=== PATIENT | male | born 1940 | race Caucasian/White ===

== ENCOUNTER → 2017-05-05 | Outpatient (CLI) | payer OTHER, MEDICAID ==
[~2017-05-05] MED LIST: AMLO5TAB2 PO; ASPI-638 PO; FINA5TAB4 PO; HYDR-3144 PO; LOVA40TA65 PO; PRED5DRO2 EACHEYE; SIMV20TA3 PO; SULF1TAB24 PO; TAMS-11 PO; TRAM50TA2 PO
== END | disposition home or self-care (01) ==
LOC: CVU 13:24
PROVIDERS: ATTEND Nurse Practitioner Family
DX: T24.301A Burn of third degree of unspecified site of right lower limb, except ankle and foot, initial encounter (principal); R21 Rash and other nonspecific skin eruption; I10 Essential (primary) hypertension; Z86.73 Personal history of transient ischemic attack (TIA), and cerebral infarction without residual deficits; Z86.79 Personal history of other diseases of the circulatory system
CPT/HCPCS: 93922

== ENCOUNTER 2018-07-13 20:15 | Inpatient (IN) | payer OTHER ==
[~2018-07-13] VITALS: Ht 165.1 cm; Wt 47.8 kg
[~2018-07-13 20:15] MED LIST changes: +ACET325T14 PO; -AMLO5TAB2 PO; +AMLO5TAB7 PO; +APIX5TAB PO; +CITA10TA8 PO; -HYDR-3144 PO; +HYDR-3245 PO; +LOVA-41 PO; -LOVA40TA65 PO; +ONDA4TAB13 PO; +POLY17PO5 PO; +TRAZ-136 PO
[2018-07-13] MEDS ORDERED: METOCLOPRAMIDE 5 MG/ML, 2ML ONE (20:47)
[2018-07-13] MEDS ORDERED: SODIUM CHLORIDE FLUSH 10ML SYR IVF ONE (21:00)
[2018-07-13] MEDS ORDERED: METOCLOPRAMIDE 5 MG/ML, 2ML IVPush ONE (21:00)
[2018-07-13 21:23] LABS: BASOPHILS # (AUTO) 0.02 x10^3/uL (0-0.1); BASOPHILS % (AUTO) 0 % (0-1); EOSINOPHILS # (AUTO) 0.01 x10^3/uL (0-0.4); EOSINOPHILS % (AUTO) 0 % (1-7); LYMPHOCYTES # (AUTO) 0.78 x10^3/uL (1-3.4); LYMPHOCYTES % (AUTO) 9 % (22-44); MD NO; MEAN CORPUSCULAR HEMOGLOBIN 30.4 pg (27.5-34.5); MEAN CORPUSCULAR HGB CONC 33.2 g/dL (33.2-36.2); MEAN CORPUSCULAR VOLUME 91.7 fL (81-97); MONOCYTES # (AUTO) 0.52 x10^3/uL (0.2-0.8); MONOCYTES % (AUTO) 6 % (2-9); NEUTROPHILS # (AUTO) 7.64 x10^3/uL (1.8-6.8); NEUTROPHILS % (AUTO) 85 % (42-75); PLATELET COUNT 618 x10^3/uL (130-400); RED BLOOD COUNT 4.65 x10^6/uL (4.38-5.82); RED CELL DISTRIBUTION WIDTH 14.8 % (9.4-14.8)
[2018-07-13 21:28] LABS: INTERNATIONAL NORMALIZED RATIO 0.97 (0.93-1.1)
[2018-07-13 21:29] LABS: ALANINE AMINOTRANSFERASE 33 U/L (12-78); ALBUMIN 3.3 g/dL (3.4-5.0); ANION GAP 7 mmol/L (5-15); CALCIUM 9.1 mg/dL (8.5-10.1); CHLORIDE 108 mmol/L (98-107); CREATININE 0.76 mg/dL (0.7-1.3)
[2018-07-13 21:31] LABS: ALKALINE PHOSPHATASE 125 U/L (45-117); BILIRUBIN,TOTAL 0.7 mg/dL (0.2-1.0); TOTAL PROTEIN 7.1 g/dL (6.4-8.2)
[2018-07-13 21:31] LABS: CULTURE INDICATED? YES; MICROSCOPIC INDICATED
[2018-07-13 22:23] LABS: CLOSTRIDIUM DIFFICILE ANTIGEN NEGATIVE; CLOSTRIDIUM DIFFICILE TOXIN NEGATIVE (Negative)
[2018-07-13] MEDS ORDERED: CEFTRIAXONE 1,000 MG in SODIUM CHLORIDE 0.9% 50 ML IV ONE (22:30)
[2018-07-13] MEDS ORDERED: ACETAMINOPHEN 325 MG TABLET PO PRN (23:00)
[2018-07-13] MEDS ORDERED: ONDANSETRON 2MG/ML, 2ML IVPush PRN (23:00)
[2018-07-13] MEDS ORDERED: POLYETHYLENE GLYCOL 17 GM PACKET PO PRN (23:00)
[2018-07-13] MEDS ORDERED: OXYcodone IR 5MG TABLET PO PRN (23:00)
[2018-07-13] MEDS ORDERED: TRAZODONE 50MG TABLET PO PRN (23:00)
[2018-07-13] MEDS ORDERED: DOCUSATE 100 MG CAPSULE PO PRN (23:00)
[2018-07-13] MEDS ORDERED: CEFTRIAXONE PMX 1GM/50ML 50 ML ONE (23:11)
[2018-07-13] MEDS ORDERED: NS + 20MEQ KCL 1,000 ML IV ONE (23:12)
[2018-07-13] MEDS: CEFTRIAXONE PMX 1GM/50ML 50 ML IV SCH (23:14)
[2018-07-14] MEDS: NS + 20MEQ KCL 1,000 ML IV SCH ×2 (00:08→12:19)
[2018-07-14 00:10] VITALS: BP 151/76
[2018-07-14 01:21] VITALS: BP 157/76
[2018-07-14] MEDS: FAMOTIDINE 20 MG/2 ML IVPush SCH ×4 (03:04→21:13)
[2018-07-14] MEDS ORDERED: OMNIPAQUE 350 MG/ML, 100ML BOTTLE ONE (05:36)
[2018-07-14 07:33] VITALS: BP 132/65
[2018-07-14 08:17] LABS: BASOPHILS # (AUTO) 0.01 x10^3/uL (0-0.1); BASOPHILS % (AUTO) 0 % (0-1); EOSINOPHILS # (AUTO) 0.01 x10^3/uL (0-0.4); EOSINOPHILS % (AUTO) 0 % (1-7); LYMPHOCYTES % (AUTO) 3 % (22-44); MD NO; MEAN CORPUSCULAR HEMOGLOBIN 30.2 pg (27.5-34.5); MEAN CORPUSCULAR HGB CONC 33.1 g/dL (33.2-36.2); MEAN CORPUSCULAR VOLUME 91.2 fL (81-97); MEAN PLATELET VOLUME 6.7 fL (7.4-10.4); MONOCYTES # (AUTO) 0.44 x10^3/uL (0.2-0.8); MONOCYTES % (AUTO) 5 % (2-9); NEUTROPHILS # (AUTO) 8.14 x10^3/uL (1.8-6.8); NEUTROPHILS % (AUTO) 92 % (42-75); PLATELET COUNT 594 x10^3/uL (130-400); RED BLOOD COUNT 4.59 x10^6/uL (4.38-5.82); RED CELL DISTRIBUTION WIDTH 14.6 % (9.4-14.8)
[2018-07-14 08:26] LABS: ALBUMIN 3.1 g/dL (3.4-5.0); ANION GAP 10 mmol/L (5-15); CHLORIDE 109 mmol/L (98-107)
[2018-07-14 08:29] LABS: ALANINE AMINOTRANSFERASE 29 U/L (12-78); ALKALINE PHOSPHATASE 114 U/L (45-117); BILIRUBIN,TOTAL 0.7 mg/dL (0.2-1.0); CREATININE 0.66 mg/dL (0.7-1.3); TOTAL PROTEIN 6.6 g/dL (6.4-8.2)
[2018-07-14] MEDS ORDERED: APIXABAN 5 MG TABLET PO SCH (09:00)
[2018-07-14] MEDS ORDERED: CITALOPRAM 10 MG TABLET PO SCH (09:00)
[2018-07-14] MEDS ORDERED: TAMSULOSIN 0.4 MG CAP.ER.24H PO SCH (09:00)
[2018-07-14] MEDS ORDERED: SENNA/DOCUSATE TABLET PO SCH (09:00)
[2018-07-14] MEDS: POLYETHYLENE GLYCOL 17 GM PACKET PO SCH (10:55)
[2018-07-14] MEDS ORDERED: HEPARIN 25,000 UNITS/500ML PMX 500 ML IV PRN (13:30)
[2018-07-14 14:00] VITALS: BP 133/72
[2018-07-14] MEDS: D5%-0.45NACL+KCL 20MEQ 1,000 ML IV SCH (14:26)
[2018-07-14 18:33] VITALS: BP 153/77
[2018-07-14] MEDS: CEFTRIAXONE PMX 1GM/50ML 50 ML IV SCH (23:16)
[2018-07-15 00:41] VITALS: BP 131/55
[2018-07-15] MEDS: D5%-0.45NACL+KCL 20MEQ 1,000 ML IV SCH ×3 (01:11→23:39)
[2018-07-15] MEDS: morphine SULFATE 10 MG/ML, 1ML IVPush PRN (05:10)
[2018-07-15 05:18] LABS: BASOPHILS # (AUTO) 0.03 x10^3/uL (0-0.1); BASOPHILS % (AUTO) 0 % (0-1); EOSINOPHILS # (AUTO) 0.01 x10^3/uL (0-0.4); EOSINOPHILS % (AUTO) 0 % (1-7); LYMPHOCYTES # (AUTO) 0.65 x10^3/uL (1-3.4); LYMPHOCYTES % (AUTO) 7 % (22-44); MD NO; MEAN CORPUSCULAR HEMOGLOBIN 30.5 pg (27.5-34.5); MEAN CORPUSCULAR HGB CONC 33.3 g/dL (33.2-36.2); MEAN CORPUSCULAR VOLUME 91.6 fL (81-97); MEAN PLATELET VOLUME 6.8 fL (7.4-10.4); MONOCYTES # (AUTO) 0.52 x10^3/uL (0.2-0.8); MONOCYTES % (AUTO) 6 % (2-9); NEUTROPHILS # (AUTO) 8.34 x10^3/uL (1.8-6.8); NEUTROPHILS % (AUTO) 87 % (42-75); PLATELET COUNT 502 x10^3/uL (130-400); RED BLOOD COUNT 4.29 x10^6/uL (4.38-5.82); RED CELL DISTRIBUTION WIDTH 14.6 % (9.4-14.8)
[2018-07-15 05:31] LABS: ALBUMIN 2.8 g/dL (3.4-5.0); ANION GAP 10 mmol/L (5-15); CHLORIDE 110 mmol/L (98-107); CREATININE 0.58 mg/dL (0.7-1.3)
[2018-07-15 07:55] VITALS: BP 145/79
[2018-07-15] MEDS: POLYETHYLENE GLYCOL 17 GM PACKET PO SCH (08:36)
[2018-07-15] MEDS: FAMOTIDINE 20 MG/2 ML IVPush SCH ×2 (08:36→21:08)
[2018-07-15] MEDS: AMPICILLIN/SULBACTAM 3 GM in SODIUM CHLORIDE 0.9% 100 ML IV SCH ×3 (09:14→19:44)
[2018-07-15 13:43] VITALS: BP 129/76
[2018-07-15] MEDS: HEPARIN 25,000 UNITS/500ML PMX 500 ML IV PRN (15:37)
[2018-07-15 19:00] VITALS: BP 120/69
[2018-07-16 01:26] VITALS: BP 121/65
[2018-07-16] MEDS: AMPICILLIN/SULBACTAM 3 GM in SODIUM CHLORIDE 0.9% 100 ML IV SCH ×4 (02:18→19:54)
[2018-07-16] MEDS: HEPARIN 25,000 UNITS/500ML PMX 500 ML IV PRN ×2 (04:12→19:39)
[2018-07-16 07:14] VITALS: BP 117/58
[2018-07-16] MEDS: morphine SULFATE 10 MG/ML, 1ML IVPush PRN ×3 (08:40→19:54)
[2018-07-16] MEDS: POLYETHYLENE GLYCOL 17 GM PACKET PO SCH (09:00)
[2018-07-16] MEDS: D5%-0.45NACL+KCL 20MEQ 1,000 ML IV SCH (10:57)
[2018-07-16] MEDS: FAMOTIDINE 20 MG/2 ML IVPush SCH ×2 (10:57→19:54)
[2018-07-16] MEDS: CEFTRIAXONE 1,000 MG in SODIUM CHLORIDE 0.9% 50 ML IV SCH (11:30)
[2018-07-16 12:38] VITALS: BP 114/59
[2018-07-16] MEDS ORDERED: GASTROGRAFIN 120 ML SOLN PO ONE (18:22)
[2018-07-16 19:37] VITALS: BP 125/63
[2018-07-17] MEDS: D5%-0.45NACL+KCL 20MEQ 1,000 ML IV SCH ×2 (00:16→14:36)
[2018-07-17 02:10] VITALS: BP 155/84
[2018-07-17] MEDS: AMPICILLIN/SULBACTAM 3 GM in SODIUM CHLORIDE 0.9% 100 ML IV SCH ×4 (02:49→19:43)
[2018-07-17 03:11] LABS: BASOPHILS # (AUTO) 0.01 x10^3/uL (0-0.1); BASOPHILS % (AUTO) 0 % (0-1); EOSINOPHILS # (AUTO) 0.03 x10^3/uL (0-0.4); EOSINOPHILS % (AUTO) 1 % (1-7); LYMPHOCYTES # (AUTO) 0.58 x10^3/uL (1-3.4); LYMPHOCYTES % (AUTO) 14 % (22-44); MD NO; MEAN CORPUSCULAR HEMOGLOBIN 29.8 pg (27.5-34.5); MEAN CORPUSCULAR HGB CONC 33.1 g/dL (33.2-36.2); MEAN CORPUSCULAR VOLUME 89.9 fL (81-97); MEAN PLATELET VOLUME 7.1 fL (7.4-10.4); MONOCYTES # (AUTO) 0.38 x10^3/uL (0.2-0.8); MONOCYTES % (AUTO) 9 % (2-9); NEUTROPHILS # (AUTO) 3.12 x10^3/uL (1.8-6.8); NEUTROPHILS % (AUTO) 76 % (42-75); PLATELET COUNT 365 x10^3/uL (130-400); RED BLOOD COUNT 4.26 x10^6/uL (4.38-5.82); RED CELL DISTRIBUTION WIDTH 14.1 % (9.4-14.8)
[2018-07-17 03:20] LABS: ALBUMIN 2.6 g/dL (3.4-5.0); ANION GAP 9 mmol/L (5-15); CALCIUM 8.4 mg/dL (8.5-10.1); CHLORIDE 113 mmol/L (98-107); CREATININE 0.53 mg/dL (0.7-1.3)
[2018-07-17] MEDS: HEPARIN 5,000 UNITS/ML, 1ML IV PRN ×3 (04:19→18:57)
[2018-07-17 07:20] VITALS: BP 137/97
[2018-07-17] MEDS: POLYETHYLENE GLYCOL 17 GM PACKET PO SCH (07:58)
[2018-07-17] MEDS: FAMOTIDINE 20 MG/2 ML IVPush SCH ×2 (09:12→19:43)
[2018-07-17] MEDS: CEFTRIAXONE 1,000 MG in SODIUM CHLORIDE 0.9% 50 ML IV SCH (11:30)
[2018-07-17] MEDS: HEPARIN 25,000 UNITS/500ML PMX 500 ML IV PRN (11:51)
[2018-07-17 14:00] VITALS: BP 139/86
[2018-07-17] MEDS: morphine SULFATE 10 MG/ML, 1ML IVPush PRN (19:43)
[2018-07-17 19:45] VITALS: BP 118/64
[2018-07-18 01:27] LABS: BASOPHILS # (AUTO) 0.02 x10^3/uL (0-0.1); BASOPHILS % (AUTO) 1 % (0-1); EOSINOPHILS # (AUTO) 0.09 x10^3/uL (0-0.4); EOSINOPHILS % (AUTO) 2 % (1-7); LYMPHOCYTES # (AUTO) 1.21 x10^3/uL (1-3.4); LYMPHOCYTES % (AUTO) 29 % (22-44); MD NO; MEAN CORPUSCULAR HEMOGLOBIN 29.7 pg (27.5-34.5); MEAN CORPUSCULAR HGB CONC 32.9 g/dL (33.2-36.2); MEAN CORPUSCULAR VOLUME 90.3 fL (81-97); MEAN PLATELET VOLUME 7.1 fL (7.4-10.4); MONOCYTES # (AUTO) 0.55 x10^3/uL (0.2-0.8); MONOCYTES % (AUTO) 13 % (2-9); NEUTROPHILS # (AUTO) 2.33 x10^3/uL (1.8-6.8); NEUTROPHILS % (AUTO) 55 % (42-75); PLATELET COUNT 361 x10^3/uL (130-400); RED CELL DISTRIBUTION WIDTH 13.9 % (9.4-14.8)
[2018-07-18 01:34] LABS: ALBUMIN 2.2 g/dL (3.4-5.0); ANION GAP 8 mmol/L (5-15); CALCIUM 7.8 mg/dL (8.5-10.1); CHLORIDE 111 mmol/L (98-107); CREATININE 0.52 mg/dL (0.7-1.3)
[2018-07-18] MEDS: HEPARIN 5,000 UNITS/ML, 1ML IV PRN (02:10)
[2018-07-18] MEDS: AMPICILLIN/SULBACTAM 3 GM in SODIUM CHLORIDE 0.9% 100 ML IV SCH ×5 (02:10→20:46)
[2018-07-18 03:45] VITALS: BP 120/69
[2018-07-18] MEDS: D5%-0.45NACL+KCL 20MEQ 1,000 ML IV SCH (05:43)
[2018-07-18 07:54] VITALS: BP 125/72
[2018-07-18] MEDS: FAMOTIDINE 20 MG/2 ML IVPush SCH ×3 (08:11→20:47)
[2018-07-18] MEDS: APIXABAN 5 MG TABLET PO SCH ×2 (08:12→20:32)
[2018-07-18] MEDS: POLYETHYLENE GLYCOL 17 GM PACKET PO SCH (08:12)
[2018-07-18] MEDS ORDERED: CEFD300C37 PO (10:42)
[2018-07-18] MEDS ORDERED: AMOX1TAB64 PO (10:42)
[2018-07-18] MEDS: CEFTRIAXONE PMX 1GM/50ML 50 ML IV SCH (11:04)
[2018-07-18 13:40] VITALS: BP 116/61
[2018-07-18] MEDS ORDERED: QUETIAPINE 25MG TABLET PO PRN (16:30)
[2018-07-18 18:27] VITALS: BP 138/64
[2018-07-19 01:24] VITALS: BP 118/63
[2018-07-19] MEDS: AMPICILLIN/SULBACTAM 3 GM in SODIUM CHLORIDE 0.9% 100 ML IV SCH ×3 (02:30→15:06)
[2018-07-19 09:55] VITALS: BP 122/67
[2018-07-19] MEDS: APIXABAN 5 MG TABLET PO SCH (10:26)
[2018-07-19] MEDS: FAMOTIDINE 20 MG/2 ML IVPush SCH (10:26)
[2018-07-19] MEDS: POLYETHYLENE GLYCOL 17 GM PACKET PO SCH (10:26)
[2018-07-19] MEDS: CEFTRIAXONE PMX 1GM/50ML 50 ML IV SCH (11:44)
[2018-07-19 13:54] VITALS: BP 133/72
== END 2018-07-19 18:20 | DRG 388 ==
LOC: ED 22:07 → EDIP 22:48 → SUATTDRO 22:50 → 3NE 23:36
PROVIDERS: ADMIT Family Medicine; ATTEND Family Medicine
PROC: 0T9B70Z Drainage of Bladder with Drainage Device, Via Natural or Artificial Opening (ICD-10-PCS; principal; 2018-07-13)
DX: K56.699 Other intestinal obstruction unspecified as to partial versus complete obstruction (principal); E43 Unspecified severe protein-calorie malnutrition; D68.69 Other thrombophilia; N39.0 Urinary tract infection, site not specified; Z68.1 Body mass index [BMI] 19.9 or less, adult; N40.1 Benign prostatic hyperplasia with lower urinary tract symptoms; R33.8 Other retention of urine; B96.20 Unspecified Escherichia coli [E. coli] as the cause of diseases classified elsewhere; E78.00 Pure hypercholesterolemia, unspecified; D64.9 Anemia, unspecified; F03.90 Unspecified dementia, unspecified severity, without behavioral disturbance, psychotic disturbance, mood disturbance, and anxiety; I10 Essential (primary) hypertension; E78.5 Hyperlipidemia, unspecified; Z66 Do not resuscitate; Z86.718 Personal history of other venous thrombosis and embolism; Z79.01 Long term (current) use of anticoagulants; Z79.899 Other long term (current) drug therapy; Z79.1 Long term (current) use of non-steroidal anti-inflammatories (NSAID); Z79.2 Long term (current) use of antibiotics
CPT/HCPCS: 36415; 74018; 74177; 74250; 80048; 80053; 81001; 82040; 83690; 83735; 84100; 85025; 85520; 85610; 85730; 87077; 87086; 87186; 87324; 89055; 93005; 99285; G0378; J0295; J0696; J1644; J3480; Q9963; Q9967; 92523-GN; J2270; J2765; S0028